=== PATIENT | male | born 1990 | race Caucasian/White ===

== ENCOUNTER 2023-12-22 11:10 | Outpatient (CLI) | payer OTHER, SELFPAY ==
--- NOTE | 2023-12-22 11:18 | US_ITS ---
FINAL REPORT TECHNIQUE: Sonographic images of the testicles and scrotum were obtained in the longitudinal and transverse planes. CLINICAL HISTORY: PAIN in rt testicle x 1 month FINDINGS: The right testicle measures 5.1 x 3.1 x 3.6 cm. There is no intratesticular mass. There is a 5 mm right epididymal cyst. No extratesticular mass is identified. The left testicle measures 2.9 x 4.8 x 2.8 centimeters. There is no intratesticular mass. The epididymis is within normal limits. No extratesticular mass is identified. Color imaging reveals no evidence of testicular torsion. IMPRESSION: No evidence of intratesticular mass or testicular torsion. Reviewed, Interpreted and Dictated by Stacia Wilks MD Transcribed by Irene Enriquez Authenticated and [facility]
== END 2023-12-22 23:59 | disposition home or self-care (01) ==
LOC: RAD 11:14
PROVIDERS: PCP Family Medicine; Visit Provider Family Medicine
DX: N50.811 Right testicular pain (principal)
CPT/HCPCS: 76870